=== PATIENT | female | born 1990 | race Caucasian/White ===

== ENCOUNTER → 2016-12-01 | Outpatient (CLI) | payer BC, MEDICAID ==
--- NOTE | 2016-12-01 10:39 | DI ---
Indication: ITS.REASON: Z34.91 ENCOUNTER FOR SUPERVISION OF NORMAL PREG PROCEDURE: US OB COMPLETE < 14 WKS: Age by LMP is 11 weeks and 4 days. This correlates to an ANEESH of June 18, 2017. Comparison: None Technique: Transabdominal and transvaginal sonographic pelvic imaging was performed. Findings: Imaging demonstrates a single living intrauterine gestation. A normal appearing yolk sac is identified. The appearance of the embryo and gestation is normal for the first trimester. cardiac activity was detected at a rate of 170 bpm. Both ovaries were identified and appear normal. Probable corpus luteum on the right. The left measures 2.7 x 1.2 x 2.3 cm, and the right 3.5 x 1.7 x 2.8 cm. No abnormal adnexal mass. No free fluid. biometry: Elmore rump length 2.13 cm: 8 weeks and 6 days. Impression: Single living intrauterine gestation with estimated gestational age of 8 weeks and 6 days by ultrasound. This correlates to an ANEESH of July 07, 2017. .
== END ==
LOC: IMA 09:35
PROVIDERS: ATTEND Family Medicine
DX: Z39.1 Encounter for care and examination of lactating mother (principal); Z3A.08 8 weeks gestation of pregnancy; Z36 Encounter for antenatal screening of mother

== ENCOUNTER 2017-05-20 12:45 | Observation (INO) ==
[2017-05-20 13:14] VITALS: BMI 48.7
[2017-05-20] MEDS ORDERED: NS 1,000 ML IV ONE (13:19)
[2017-05-20] MEDS: NS 1,000 ML IV SCH ×2 (14:36→19:50)
[2017-05-20] MEDS ORDERED: TERBUTALINE 1 MG/ML VIAL SQ ONE (15:11)
--- NOTE | 2017-05-20 16:00 | Progress Note ---
OB PP Progress Note Free Text - Date Date: 05/20/17 - Progress Note Progress Note: 27 yo ANEESH 07/07/17 33 weeks 2 days EGA called reporting increased pelvic pressure, nausea, for about 6 hours. GFM, no loss of fluid. Here was found to have ctxs q 2 minutes. Cervix closed/ballotable. IV fluids did not change the contractions. One dose of subcutaneous terbutaline has decreased their frequency. Labs showed normal CBC except elevated WBC, normal CMP, UA with 3+ ketones. FHTs reactvie, Category 1. Will continue to monitor as terbutaline wears off. Q&A
[2017-05-20] MEDS ORDERED: ONDANSETRON 4 MG/2 ML INJECTION IVP PRN (16:40)
[2017-05-20] MEDS ORDERED: ZOLPIDEM 10 MG TABLET PO PRN (17:34)
--- NOTE | 2017-05-20 17:37 | Progress Note ---
OB PP Progress Note Free Text - Date Date: 05/20/17 - Progress Note Progress Note: Pt has resumed regular contractions, every 2-3 minutes. FHTs remain reassuring. Cervix closed/thick/ballotable Offered Ambien to help sleep while we continue to monitor. If no changes in a.m. , will plan dismissal. Q&A
[2017-05-20 18:18] VITALS: TEMP 98.2
[2017-05-20 22:42] VITALS: RESP 20; O2SAT 98
[2017-05-21] MEDS: NS 1,000 ML IV SCH (01:50)
[2017-05-21 06:57] VITALS: BP 141/69; PULSE 102
[2017-05-21] MEDS ORDERED: ACETAMINOPHEN 500 MG TABLET PO PRN (07:11)
--- NOTE | 2017-05-21 08:53 | Labor and Delivery Triage Note ---
L&D Triage/Final Diagnosis - Visit Information Date of evaluation: 05/21/17 Reason for evaluation OB Triage: other (N/V Contractions) : 2 - Evaluation Baseline heart rate: 140 Variability: Moderate (5-25) monitor accelerations: Present monitor decelerations: None [place]: Occasional, Pt denies feeling ctx since yesterday Cervical dilation (cm): 0 Cervical effacement (%): 0 station: -4 (Per exam yesterday) Abdominal Exam: Present: fundus soft (Non tender) Laboratory results: Laboratory Results - last 24 hr 05/20/17 05/20/17 05/20/17 13:32 13:32 14:30 WBC 16.8 H RBC 4.77 Hgb 13.9 Hct 42.4 MCV 88.9 MCH 29.1 MCHC 32.8 RDW Std Deviation 43.5 Plt Count 207 MPV 11.0 Immature Gran % (Auto) Not performed Neut % (Auto) Not performed Lymph % (Auto) Not performed Thomas % (Auto) Not performed Eos % (Auto) Not performed Baso % (Auto) Not performed Neut # Not performed Lymph # Not performed Thomas # Not performed Eos # Not performed Baso # Not performed Abs Immat Gran (auto) Not performed Neutrophils % (Manual) 77.0 H Band Neutrophils % 15.0 H Lymphocytes % (Manual) 5.0 L Monocytes % (Manual) 3.0 Neutrophils # (Manual) 12.9 H Band Neutrophils # 2.5 Lymphocytes # (Manual) 0.8 L Monocytes # (Manual) 0.5 RBC Morph Comment Normal Turbidity < 20 Sodium 143 Potassium 4.0 Chloride 109 H Carbon Dioxide 20 L Anion Gap 14 BUN 9.0 Creatinine 0.5 L GFR Calculation 146 BUN/Creatinine Ratio 18 Glucose 94 Glucometer Calculated Osmolality 274 Calcium 9.2 Total Bilirubin 0.90 Icterus Index < 2 AST 27 ALT 34 Alkaline Phosphatase 122 Total Protein 7.4 Albumin 3.9 Globulin 3.5 Albumin/Globulin Ratio 1.1 Specimen Hemolysis 79 H Ur Collection Type Urine, clean catch Urine Color Yellow Urine Clarity Cloudy Urine pH 5.5 Ur Specific [place] >=1.030 H Urine Protein Trace A Urine Glucose (UA) Negative Urine Ketones 3+ A Urine Occult Blood Negative Urine Nitrate Negative Urine Bilirubin Negative Urine Urobilinogen 0.2 Ur Leukocyte Esterase Negative Urinalysis Comment Microscopic not ind. 05/21/17 05:32 WBC RBC Hgb Hct MCV MCH MCHC RDW Std Deviation Plt Count MPV Immature Gran % (Auto) Neut % (Auto) Lymph % (Auto) Thomas % (Auto) Eos % (Auto) Baso % (Auto) Neut # Lymph # Thomas # Eos # Baso # Abs Immat Gran (auto) Neutrophils % (Manual) Band Neutrophils % Lymphocytes % (Manual) Monocytes % (Manual) Neutrophils # (Manual) Band Neutrophils # Lymphocytes # (Manual) Monocytes # (Manual) RBC Morph Comment Turbidity Sodium Potassium Chloride Carbon Dioxide Anion Gap BUN Creatinine GFR Calculation BUN/Creatinine Ratio Glucose Glucometer 86 Calculated Osmolality Calcium Total Bilirubin Icterus Index AST ALT Alkaline Phosphatase Total Protein Albumin Globulin Albumin/Globulin Ratio Specimen Hemolysis Ur Collection Type Urine Color Urine Clarity Urine pH Ur Specific Bynum Urine Protein Urine Glucose (UA) Urine Ketones Urine Occult Blood Urine Nitrate Urine Bilirubin Urine Urobilinogen Ur Leukocyte Esterase Urinalysis Comment Vital signs: Last Vital Signs Temp 98.2 F 05/21/17 04:09 Pulse 102 H 05/21/17 04:09 Resp 20 05/21/17 04:09 BP 141/69 H 05/21/17 04:09 Pulse Ox 98 05/20/17 21:57 - Final Diagnosis (1) Nausea & vomiting Current Visit: Yes Status: Acute - Plan Comments: Pt recieved Fluids. Denies contraction Tolerating diet this am. Will dismiss to home with routine f/u
--- NOTE | 2017-05-21 08:55 | Discharge Instructions ---
Discharge Plan - Med Rec/Dispo Referrals/Follow Up: Kala Hutchins MD [Physician] - [place] Instructions: (GEN) Prescriptions: Continue Fluticasone Propionate [Flovent Diskus 100 mcg] 1 puff INH BID Albuterol Sulfate [Proair Hfa] 1 puff INH Q4H PRN PRN Reason: Shortness Of Air/Wheezing Vit No.124/Iron/Folic [ Vitamin Tablet] 1 each PO DAILY diphenhydrAMINE HCl [Benadryl] 25 mg PO BID GlyBURIDE [Micronase] 7.5 mg PO DAILY GlyBURIDE [Micronase] 10 mg PO HS Acyclovir 1 tab PO DAILY No Action Aspirin Chewable [ASA] 81 mg PO DAILY - Disposition 01 Discharged Home, Self-Care
== END 2017-05-21 09:35 | disposition home or self-care (01) ==
LOC: OBOBS 12:45 → MC 12:45 → OBOBS 16:49
PROVIDERS: ADMIT Obstetrics & Gynecology; ATTEND Obstetrics & Gynecology